=== PATIENT | male | born 1950 | race Caucasian/White ===

== ENCOUNTER 2018-02-14 18:13 | Inpatient (IN) | payer OTHER, MEDICAID ==
[~2018-02-14] VITALS: Ht 172.7 cm; Wt 65.3 kg
[2018-02-14 18:18] VITALS: BP 160/103
[2018-02-14] MEDS ORDERED: NIFE60TE5 PO (18:35)
[2018-02-14] MEDS ORDERED: MAGN400S60 PO (18:35)
[2018-02-14] MEDS ORDERED: GABA300C PO (18:35)
[2018-02-14] MEDS ORDERED: DOCU-299 PO (18:35)
[2018-02-14] MEDS ORDERED: SIMV40TA1 PO (18:35)
[2018-02-14] MEDS ORDERED: METO25TA PO (18:35)
[2018-02-14] MEDS ORDERED: ACET-2619 PO (18:35)
[2018-02-14] MEDS ORDERED: QUET25TA PO (18:35)
[2018-02-14] MEDS ORDERED: MULT-1081 PO (18:35)
[2018-02-14] MEDS ORDERED: DONE10TA10 PO (18:35)
--- NOTE | 2018-02-14 18:40 | NUR ---
PATIENT IS A 68 YO MALE ADMITTED FROM SNF FOR BACK PAIN AND REFUSING TO EAT FOR TWO DAYS. AWAKE ON ARRIVAL BUT REFUSES TO SPEAK.
--- NOTE | 2018-02-14 18:41 | NUR ---
PT BIB A FROM SNF IN [place] FOR C/O RT LEG AND BACK PAIN, AND REFUSING TO EAT FOR 2 DAYS PER EMS. PT WITH H/O DEMENTIA, RESISTIVE TO ASSESSMENT QUESTIONS, CLOSING HIS EYE AND TURNING AWAY WHEN ASKED WHY HE IS HERE. PT DENIES INJURY. STATES HIS RT LEG HURTS HIM. RT LEG IS FLACCID, NORMAL IN APPEARENCE OTHERWISE. CAP REFILL TO RT FOOT <3 SECONDS, +CSM. PT PLACED ON ALL MONITORS, VS WNL. DENIES ABD PAIN, N/V/D. PENDING MD ZIMMERMAN.
--- NOTE | 2018-02-14 19:16 | NUR ---
RECEIVED REPORT FROM AM SHIFT, PT IS LAYING IN BED, AWAKE , WILL CONTINUE TO MONITOR.
[2018-02-14] MEDS ORDERED: NACL 0.9% 1,000 ML IV SCH (20:01)
[2018-02-14] MEDS ORDERED: cefTRIAXone 1,000 MG in DEXT 5% MINI-BAG PLUS 50 ML IV ONE (20:05)
--- NOTE | 2018-02-14 20:09 | NUR ---
X-Ray at bedside.
--- NOTE | 2018-02-14 20:12 | NUR ---
LAB AT BEDSIDE.
[2018-02-14 20:14] LABS: APPEARANCE,URINE HAZY (CLEAR); BILIRUBIN,URINE NEGATIVE (NEGATIVE); BLOOD, URINE 1+ (NEGATIVE); COLOR,URINE YELLOW (YELLOW); LEUKOCYTE ESTERASE ,URINE 2+ (NEGATIVE); NITRITE, URINE NEGATIVE (NEGATIVE); PH,URINE 6.5 (5.0-9.0); UGLUCOSE NEGATIVE (NEGATIVE)
--- NOTE | 2018-02-14 20:30 | NUR ---
PT LAYING IN BED, APPEARS TO BE IN NO DISTRESS, VSS.
[2018-02-14] MEDS ORDERED: cefTRIAXone 1,000 MG VIAL ONE (20:45)
[2018-02-14 20:51] LABS: BASOPHILS % (AUTO) 0.4 % (0.0-2.0); EOSINOPHILS # (AUTO) 0.3 K/uL (0-0.4); EOSINOPHILS % (AUTO) 5.5 % (0.0-4.0); HEMATOCRIT 41.9 % (36-52); HEMOGLOBIN 13.6 g/dL (12.0-18.0); LYMPHOCYTES # (AUTO) 2.3 K/uL (2.0-11.5); LYMPHOCYTES % (AUTO) 43.4 % (20.5-51.1); MEAN CORPUSCULAR HEMOGLOBIN 29 pg (27-31); MEAN CORPUSCULAR HGB CONC 32 g/dL (33-37); MEAN CORPUSCULAR VOLUME 90.9 fL (80-94); MONOCYTES # (AUTO) 0.4 K/uL (0.8-1.0); MONOCYTES % (AUTO) 6.5 % (1.7-9.3); NEUTROPHILS # (AUTO) 2.4 K/uL (1.8-7.7); NEUTROPHILS % (AUTO) 44.2 % (42.2-75.2); PLATELET COUNT (AUTO) 194 K/uL (140-450); RED BLOOD CELL COUNT(AUTO) 4.61 MIL/uL (4.20-6.10); RED CELL DISTRIBUTION WIDTH 15.9 % (11.6-13.7); WHITE BLOOD COUNT (AUTO) 5.4 K/uL (4.8-10.8)
[2018-02-14 21:21] LABS: POTASSIUM 3.6 mmol/L (3.5-5.1)
[2018-02-14 21:22] LABS: CARBON DIOXIDE 31.7 mmol/L (21-32)
[2018-02-14 21:23] LABS: ANION GAP 6.9 (8-16); CREATININE 0.8 mg/dL (0.7-1.3)
[2018-02-14 21:25] LABS: TOTAL BILIRUBIN 0.3 mg/dL (0.0-1.0)
[2018-02-14 21:26] LABS: ALBUMIN 3.5 g/dL (3.4-5.0)
[2018-02-14 21:32] LABS: RBC,URINE 3-10 (FEW) /HPF (0-5); WBC,URINE 20-60 /HPF (0-5)
--- NOTE | 2018-02-14 21:34 | NUR ---
Dr. Parson evaluating patient at bedside.
[2018-02-14] MEDS ORDERED: KETOROLAC 30 MG/ML VIAL IVP ONE (21:40)
--- NOTE | 2018-02-14 22:00 | NUR ---
PT LAYING IN BED, VSS, WILL CONTINUE TO MONITOR.
--- NOTE | 2018-02-14 23:02 | NUR ---
Patient will be admitted to care of DR. MCLAUGHLIN. Admited toMED-SURG. Will go to room 112-B. Belongings list completed. Report to FRED PINEDA.
--- NOTE | 2018-02-14 23:05 | NUR ---
PT ARRIVED AT UNIT VIA GURNEY, TRANSFERRED PT TO BED, PT TOLERATED WELL, BEDSIDE REPORT RECEIVED FROM ER NURSE SUKHDEEP, PT STABLE, NO DISTRESS NOTED, PT CURRENTLY HAS NO IV ACCESS DUE TO PT PULLED IV OUT, PT ON ROOM AIR, NO SOB, ORIENT PT TO ROOM, BED, CALL LIGHT, AND PHONE, MRSA SWAB TAKEN, PT STATED HAVING NO PAIN AT THIS MOMENT, INITIAL ASSESSMENT DONE, ALL SAFETY PRECAUTION MET, WILL CONTINUE TO MONITOR.
[2018-02-14 23:30] VITALS: BP 143/53
[2018-02-14] MEDS ORDERED: ACETAMINOPHEN EXTRA STRENGTH 500 MG TAB PO PRN (23:40)
[2018-02-14] MEDS: NACL 0.45% 1,000 ML IV SCH (23:40)
--- NOTE | 2018-02-14 23:45 | NUR ---
CALLED DR. MCLAUGHLIN REGARDING NEW PT ADMISSION, STATED TO PUT IN ORDERS, MECHANICAL SOFT DIET, IVF: 1/2 NS @ 100ML/HR, BEDREST, CBC AND CMP FOR AM, ROCEPHINE 1G IV DAILY AND SINCE IT IS ALREADY GIVEN IN ER, TO START ROCEPHIN TOMORROW, TYLENOL EXTRA STRENGTH Q6H FOR PAIN, STATED WILL PUT THE REST OF PT MEDICATION TOMORROW WHEN HE COMES AND SEE THE PT. WILL PUT IN ORDERS AND CONTINUE WITH ORDERS.
[2018-02-14] MEDS ORDERED: SYN.05 PO (23:50)
--- NOTE | 2018-02-15 00:05 | NUR ---
PT STATED FEELING HUNGRY, GAVE PT SOME APPLESAUCE, PT REFUSED AFTER FIRST SPOON OF APPLE SAUCE STATED HE DOES NOT WANT ANYMORE, PT RESTING, NO DISTRESS NOTED, CALL LIGHT WITHIN REACH, WILL CONTINUE TO MONITOR.
--- NOTE | 2018-02-15 00:25 | NUR ---
PATIENT REFUSED IV INSERTION, STATED HE DOES NOT WANT IT, PT RESTING, NO DISTRESS NOTED, CALL LIGHT WITHIN REACH, WILL CONTINUE TO MONITOR.
--- NOTE | 2018-02-15 02:08 | NUR ---
CHECKED ON PT, PT SLEEPING, NO DISTRESS NOTED, CALL LIGHT WITHIN REACH, WILL CONTINUE TO MONITOR.
--- NOTE | 2018-02-15 04:10 | NUR ---
CHECKED ON PT, PT SLEEPING, NO DISTRESS NOTED, CALL LIGHT WITHIN REACH, WILL CONTINUE TO MONITOR.
--- NOTE | 2018-02-15 05:07 | NUR ---
NEW IV INSERTED, PT TOLERATED WELL, NEW IV TO THE R FA 22G, PATENT INTACT, INFUSING WELL, PT RESTING, NO DISTRESS NOTED, CALL LIGHT WITHIN REACH, WILL CONTINUE TO MONITOR.
[2018-02-15] MEDS: NACL 0.45% 1,000 ML IV SCH ×3 (05:10→19:40)
--- NOTE | 2018-02-15 05:53 | NUR ---
PT PULLED IV OUT, CATH INTACT, PT REFUSED IV INSERTION, NO DISTRESS NOTED, CALL LIGHT WITHIN REACH, WILL CONTINUE TO MONITOR.
--- NOTE | 2018-02-15 06:00 | NUR ---
PT REFUSED TO WEAR GOWN, KEEPS TAKING IT OFF AND PUTTING IT TO THE SIDE, PT STABLE, NO DISTRESS NOTED, CALL LIGHT WITHIN REACH,WILL CONTINUE TO MONITOR.
--- NOTE | 2018-02-15 07:10 | NUR ---
ENDORSED PT TO DAY SHIFT NURSE MAGNOLIA RN, PT STABLE, NO DISTRESS NOTED, SLEEPING, CALL LIGHT WITHIN REACH.
--- NOTE | 2018-02-15 07:12 | NUR ---
RECEIVED REPORT FROM NIGHT RN. PT RESTING IN BED. AAOX3. NO S/S OF ACUTE DISTRESS. PT DENIES PAIN. PT REFUSED IV AT THIS TIME. DR. MCLAUGHLIN MADE AWARE. CALL LIGHT WITHIN REACH. SAFETY MEASURES ENSURED. WILL CONTINUE TO MONITOR.
[2018-02-15 07:17] LABS: BASOPHILS % (AUTO) 0.7 % (0.0-2.0); EOSINOPHILS # (AUTO) 0.2 K/uL (0-0.4); EOSINOPHILS % (AUTO) 5.3 % (0.0-4.0); HEMATOCRIT 40.9 % (36-52); HEMOGLOBIN 13.4 g/dL (12.0-18.0); LYMPHOCYTES # (AUTO) 1.9 K/uL (2.0-11.5); LYMPHOCYTES % (AUTO) 41.8 % (20.5-51.1); MEAN CORPUSCULAR HEMOGLOBIN 30 pg (27-31); MEAN CORPUSCULAR HGB CONC 33 g/dL (33-37); MEAN CORPUSCULAR VOLUME 90.7 fL (80-94); MONOCYTES # (AUTO) 0.3 K/uL (0.8-1.0); MONOCYTES % (AUTO) 6.8 % (1.7-9.3); NEUTROPHILS # (AUTO) 2.1 K/uL (1.8-7.7); NEUTROPHILS % (AUTO) 45.4 % (42.2-75.2); PLATELET COUNT (AUTO) 194 K/uL (140-450); RED BLOOD CELL COUNT(AUTO) 4.52 MIL/uL (4.20-6.10); RED CELL DISTRIBUTION WIDTH 16.2 % (11.6-13.7); WHITE BLOOD COUNT (AUTO) 4.6 K/uL (4.8-10.8)
[2018-02-15 07:51] LABS: ALBUMIN 3.5 g/dL (3.4-5.0); ANION GAP 8.4 (8-16); CARBON DIOXIDE 30.3 mmol/L (21-32); CREATININE 0.6 mg/dL (0.7-1.3); POTASSIUM 3.7 mmol/L (3.5-5.1); TOTAL BILIRUBIN 0.4 mg/dL (0.0-1.0)
[2018-02-15] MEDS ORDERED: LEVOTHYROXINE 0.05 MG TAB PO SCH (07:51)
[2018-02-15 08:00] VITALS: BP 138/71
[2018-02-15] MEDS: NIFEdipine 60 MG TABER PO SCH (08:27)
[2018-02-15] MEDS: GABAPENTIN 300 MG CAP PO SCH ×3 (08:27→16:46)
--- NOTE | 2018-02-15 08:27 | NUR ---
AM MEDS GIVEN. WILL CONTINUE TO MONITOR.
[2018-02-15] MEDS: QUEtiapine FUMARATE 25 MG TAB PO SCH ×2 (08:28→22:02)
[2018-02-15] MEDS: METOPROLOL 25 MG TAB PO SCH ×2 (08:28→21:00)
[2018-02-15] MEDS: DOCUSATE SODIUM 100 MG GELCAP PO SCH ×2 (08:28→22:00)
--- NOTE | 2018-02-15 08:51 | NUR ---
PATIENT HAS BEEN SCREENED AND CATEGORIZED HIGH NUTRITION RISK. PATIENT WILL BE SEEN WITHIN 1-2 DAYS OF ADMISSION. 02/15/18 02/16/[address]
--- NOTE | 2018-02-15 11:43 | NUR ---
NEW IV STARTED TO RIGHT AC. IV WRAPPED AND PT VERBALIZED UNDERSTANDING ABOUT NOT PULLING IT OUT. PT PULLED IV OUT TIP INTACT BEFORE RN LEFT ROOM. STATES CRANDALL TOLD HIM TO DO IT.
--- NOTE | 2018-02-15 13:25 | NUR ---
PER DR. LISSETTE GANNON IF PT REFUSES IV.
--- NOTE | 2018-02-15 13:39 | NUR ---
Remote Control Assembler Note: Per Thor from [facility] , patient is on a 7 day bed hold and patient's healthcare decision maker is his Portia Owen . 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
--- NOTE | 2018-02-15 14:58 | NUR ---
02/15/18 RD INITIAL ASSESSMENT COMPLETED PLEASE REFER TO NUTRITION ASSESSMENT UNDER CARE ACTIVITY FOR ESTIMATED NUTRITIONAL NEEDS. 1. CONTINUE MECHANICAL SOFT DIET TOLERATED 2. RECOMMEND ENSURE TID WITH MEALS 3. RD TO FOLLOW-UP 2-3 DAYS, HIGH RISK DANA GUERRERO, RD
[2018-02-15 16:00] VITALS: BP 127/60
--- NOTE | 2018-02-15 19:15 | NUR ---
RECEIVED PT FROM MAGNOLIA IBARRA PT IS AAOX3 ON BED REST NOT IV ACCESS ACCODING TO DAY SHIFT NURSE DR MCLAUGHLIN AWARE, PT REPOSITIONED NOT DISTRESS NOTED AT THIS TIME
--- NOTE | 2018-02-15 19:22 | NUR ---
ENDORSED PLAN OF CARE TO NIGHT RN.
[2018-02-15 20:00] VITALS: BP 91/48
[2018-02-15] MEDS ORDERED: SIMVASTATIN 40 MG TAB PO SCH (21:00)
[2018-02-15] MEDS ORDERED: cefTRIAXone 1,000 MG VIAL IM SCH (21:00)
[2018-02-15] MEDS ORDERED: DONEPEZIL 10 MG TAB PO SCH (21:00)
--- NOTE | 2018-02-15 21:30 | NUR ---
DR ORTEGAIVE ORDER TO GIVE ROCEPHIN IM AND ORDERS TO FOLLOW, PT COOPERATIVE TO TAKEHIS ORAL MEDICATION
--- NOTE | 2018-02-16 | NUR ---
PT REMAIN STABLE SLEEPING WELL NOT DISTRESS NOTED
--- NOTE | 2018-02-16 04:00 | NUR ---
SPONGE BATH GIVEN LINEN CHANGED NOT DISTRESS NOTED AT THIS TIME PT BEDBOUND REMAIN STBLE NOT FEVER.
[2018-02-16] MEDS: NACL 0.45% 1,000 ML IV SCH (05:40)
[2018-02-16] MEDS ORDERED: LEVOTHYROXINE 0.05 MG TAB PO SCH (06:30)
--- NOTE | 2018-02-16 07:14 | NUR ---
PT REMAIN STABLE NOT DISTRESS NOTED REPORT GIVEN TO THEO FOR CONTINUITY OF CARE
--- NOTE | 2018-02-16 07:14 | NUR ---
RECEIVED BEDSIDE REPORT FROM NIGHTSHIFT NURSE AT BEDSIDE. PATIENT IS AWAKE AT THIS TIME IN SEMI-FOWLERS POSITION. NO DISTRESS NOTED. NO PAIN NOTED. PATIENT IS ALERT AND ORIENTED X2 TO NAME AND BIRTHDAY. PATIENT HAS NO IV ACCESS. DR. MCLAUGHLIN AWARE. PATIENT ABLE TO USE CALL LIGHT. UPDATED BOARD IN PATIENT'S ROOM. WILL CONTINUE TO MONITOR PATIENT.
[2018-02-16 07:47] LABS: ANION GAP 10.3 (8-16); CARBON DIOXIDE 29.7 mmol/L (21-32); CREATININE 0.6 mg/dL (0.7-1.3)
[2018-02-16 08:00] VITALS: BP 125/76
[2018-02-16] MEDS: DOCUSATE SODIUM 100 MG GELCAP PO SCH (08:27)
[2018-02-16] MEDS: NIFEdipine 60 MG TABER PO SCH (08:27)
[2018-02-16] MEDS: METOPROLOL 25 MG TAB PO SCH (08:27)
[2018-02-16] MEDS: QUEtiapine FUMARATE 25 MG TAB PO SCH (08:27)
[2018-02-16] MEDS: GABAPENTIN 300 MG CAP PO SCH ×2 (08:27→12:34)
--- NOTE | 2018-02-16 08:27 | NUR ---
PATIENT TOOK ALL AM MEDICATIONS AT THIS TIME. PATIENT TOLERATED WELL. WILL CONTINUE TO MONITOR PATIENT.
[2018-02-16] MEDS ORDERED: COMMUNICATION ORDER MC SCH (09:00)
--- NOTE | 2018-02-16 10:25 | NUR ---
PATIENT RESTING IN BED. NO DISTRESS NOTED. WILL CONTINUE TO MONITOR PATIENT.
[2018-02-16] MEDS ORDERED: ROC2I IM (10:55)
[2018-02-16] MEDS ORDERED: LEVO0.024 PO (10:56)
--- NOTE | 2018-02-16 12:15 | NUR ---
PATIENT RESTING IN BED. NO DISTRESS NOTED. WILL CONTINUE TO MONITOR PATIENT.
--- NOTE | 2018-02-16 12:59 | NUR ---
Dairy Specialist Note: [facility] , patient can return to room 130C after 3pm today, accepting physician is , watch caser Lis will arrange transportation.
--- NOTE | 2018-02-16 14:16 | NUR ---
GAVE REPORT TO ALEXANDR[facility] MILIAN AT [facility]. GAVE CALL BACK NUMBER FOR ADDITIONAL QUESTIONS.
--- NOTE | 2018-02-16 15:15 | NUR ---
PATIENT LEFT THE UNIT VIA GURNEY WITH [facility]. NO IV SITE NOTED. PATIENT LEFT WITH ALL BELONGINGS. PATIENT LEFT IN STABLE CONDITION.
[2018-02-17] MEDS ORDERED: LEVOTHYROXINE 0.075 MG TAB PO SCH (06:30)
[2018-02-17] MEDS ORDERED: LEVOTHYROXINE 0.05 MG TAB PO SCH (06:30)
== END 2018-02-16 15:15 | DRG 690 ==
LOC: MED 18:13 → MTU 22:12
PROVIDERS: ADMIT Family Medicine; ATTEND Family Medicine
DX: N39.0 Urinary tract infection, site not specified (principal); I73.9 Peripheral vascular disease, unspecified; F01.50 Vascular dementia, unspecified severity, without behavioral disturbance, psychotic disturbance, mood disturbance, and anxiety; E78.5 Hyperlipidemia, unspecified; E03.9 Hypothyroidism, unspecified; I10 Essential (primary) hypertension; R63.0 Anorexia; Z68.21 Body mass index [BMI] 21.0-21.9, adult; F17.210 Nicotine dependence, cigarettes, uncomplicated
CPT/HCPCS: 36415; 71045; 76700; 80048; 80053; 81001; 82550; 82553; 83605; 83880; 84443; 84484; 85025; 87040; 87081; 87086; 93005; 96361; 96374; 99285; J0696; J1885; J7060; Q0092